=== PATIENT | female | born 1980 | race Two or more races ===

== ENCOUNTER 2017-08-19 16:47 | Emergency (ER) | payer MEDICAID ==
[~2017-08-19] VITALS: Ht 165.1 cm; Wt 76.2 kg
[~2017-08-19 16:47] MED LIST: NKM; NORCO 5-325 TA1 EACH ORAL; PRILOSEC OTC20 MG ORAL
[2017-08-19 17:17] VITALS: BP 119/81
[2017-08-19] MEDS ORDERED: Ketorolac 30mg Inj IM ONE (17:30)
[2017-08-19] MEDS ORDERED: AUGMENTIN 875-1 EAC1 ORAL (18:06)
[2017-08-19] MEDS ORDERED: TRAMADOL HCL50 MG ORAL (18:06)
[2017-08-19 18:18] VITALS: BP 119/81
--- NOTE | 2017-08-19 18:39 | Emergency Room Report ---
History of Present Illness General Chief Complaint: Earache Source: Patient Present Illness HPI 36-year-old female presents ED for evaluation. Patient complaining of right ear pain since 5 days. Pain is throbbing, 9 out of 10, complaining of headache. Denies fevers or chills. Denies chest pain or shortness of breath. Denies neck stiffness. No other aggravating relieving factors. Denies any other associated symptoms Allergies: Coded Allergies: No Known Allergies (Unverified , 10/21/14) Patient History Past Medical History: none Past Surgical History: none Pertinent Family History: none Social History: Denies: smoking, alcohol use, drug use Last Menstrual Period: 07/12/17 Now: No Immunizations: UTD Reviewed Nursing Documentation: PMH: Agreed; PSxH: Agreed Nursing Documentation-PMH Past Medical History: No Stated History Review of Systems All Other Systems: negative except mentioned in HPI Physical Exam Vital Signs Date Time Temp Pulse Resp B/P (MAP) Pulse Ox O2 Delivery O2 Flow Rate FiO2 08/19/17 16:55 98.4 84 12 119/81 98 Room Air 98.4 Sp02 EP Interpretation: reviewed, normal General Appearance: no apparent distress, alert, GCS 15, non-toxic Head: normocephalic Eyes: bilateral eye normal inspection, bilateral eye PERRL ENT: hearing grossly normal, normal pharynx, no angioedema, normal voice, other - bilateral TM erythematous. poor light reflex Neck: full range of motion, supple/symm/no masses Respiratory: chest non-tender, lungs clear, normal breath sounds, speaking full sentences Cardiovascular #1: normal inspection Gastrointestinal: normal inspection Rectal: deferred Genitourinary: no CVA tenderness Musculoskeletal: normal inspection Neurologic: alert, oriented x3, responsive, motor strength/tone normal, sensory intact, speech normal Psychiatric: normal inspection Skin: normal inspection Lymphatic: normal inspection Medical Decision Making Diagnostic Impression: Primary Impression: Otitis media Qualified Codes: H66.90 - Otitis media, unspecified, unspecified ear ER Course Hospital Course 36 F presents with R ear pain Differential diagnoses include: TM perforation, otitis externa, otitis media Clinical course Patient placed on stretcher. After initial history, physical exam reveals a young female in mild distress. There is bilateral erythematous TM. Poor light reflex. No nuchal rigidity. Remainder of physical exam unremarkable Patient given Toradol and ED for pain Diagnosis - otitis media Stable and discharged to home with Rx augmentin, tramadol. Followup with PMD. Return to ED if symptoms recur or worsen Last Vital Signs Date Time Temp Pulse Resp B/P (MAP) Pulse Ox O2 Delivery O2 Flow Rate FiO2 08/19/17 18:18 98.4 84 15 119/81 98 Room Air 98.4 Status: improved Disposition: HOME, SELF-CARE Condition: Stable Scripts Amoxicillin/Potassium Clav 875-125* (AUGMENTIN 875-125 TABLET*) 1 Each Tablet 1 TAB ORAL TWICE A DAY for 10 Days, #20 TAB Prov: Jan Zepeda MD 08/19/17 Tramadol Hcl* (ULTRAM*) 50 Mg Tablet 50 MG ORAL Q6H PRN for For Pain, #20 TAB 0 Refills Prov: Jan Zepeda MD 08/19/17 Patient Instructions: Otitis Media, Adult Jan Zepeda MD Aug 19, 2017 18:39
== END 2017-08-19 18:20 | disposition home or self-care (01) ==
LOC: EMR 17:22
DX: H66.93 Otitis media, unspecified, bilateral (principal)
CPT/HCPCS: 96372; 99284; J1885